=== PATIENT | male | born 1990 | race Caucasian/White ===

== ENCOUNTER 2019-09-08 16:15 | Emergency (ER) | payer OTHER, SELFPAY ==
[~2019-09-08] VITALS: Ht 170.2 cm; Wt 68.0 kg
[2019-09-08 16:24] VITALS: BP 125/83
[2019-09-08] MEDS ORDERED: KETOROLAC 30 MG/ML VIAL IM/IVP ONE (16:55)
[2019-09-08] MEDS ORDERED: NACL 0.9% 1,000 ML IV ONE (16:55)
[2019-09-08] MEDS ORDERED: ONDANSETRON 4 MG/2 ML VIAL IVP ONE (16:55)
[2019-09-08 17:40] LABS: BASOPHILS # (AUTO) 0.2 K/uL (0.00-0.22); BASOPHILS % (AUTO) 1.7 % (0.0-2.0); EOSINOPHILS # (AUTO) 0.1 K/uL (0-0.4); EOSINOPHILS % (AUTO) 0.9 % (0.0-4.0); HEMATOCRIT 47.4 % (36-52); LYMPHOCYTES # (AUTO) 1.7 K/uL (2.0-11.5); LYMPHOCYTES % (AUTO) 13.4 % (20.5-51.1); MEAN CORPUSCULAR HEMOGLOBIN 31 pg (27-31); MEAN CORPUSCULAR HGB CONC 34 g/dL (33-37); MONOCYTES # (AUTO) 0.8 K/uL (0.8-1.0); MONOCYTES % (AUTO) 6.6 % (1.7-9.3); NEUTROPHILS # (AUTO) 9.7 K/uL (1.8-7.7); NEUTROPHILS % (AUTO) 77.4 % (42.2-75.2); PLATELET COUNT (AUTO) 369 K/uL (140-450); RED CELL DISTRIBUTION WIDTH 13.6 % (11.6-13.7); WHITE BLOOD COUNT (AUTO) 12.6 K/uL (4.8-10.8)
[2019-09-08 17:56] LABS: ALBUMIN 4.5 g/dL (3.4-5.0); ANION GAP 12.6 (8-16); CARBON DIOXIDE 31.4 mmol/L (21-32); CREATININE 1.1 mg/dL (0.6-1.3); TOTAL BILIRUBIN 0.4 mg/dL (0.0-1.0)
[2019-09-08 18:19] LABS: RSV NEGATIVE (NEGATIVE)
[2019-09-08 19:28] VITALS: BP 121/72
== END 2019-09-08 19:23 | disposition home or self-care (01) ==
LOC: EEVIPCON 16:15 → MED 16:15
DX: B34.9 Viral infection, unspecified (principal); Z20.828 Contact with and (suspected) exposure to other viral communicable diseases; Z59.0 Homelessness
CPT/HCPCS: 36415; 71045; 74021; 80053; 83690; 85025; 87420; 87635; 87804; 96374; 96375; 99284; J1885; J2405; J7030; Q0092